=== PATIENT | male | born 1965 | race Caucasian/White ===

== ENCOUNTER 2021-04-07 20:46 | Emergency (ER) | payer OTHER ==
[2021-04-07 21:08] VITALS: BP 136/101
[2021-04-07] MEDS ORDERED: LIDOCAINE 1% 2 ML VIAL SUBQ STA (21:13)
--- NOTE | 2021-04-07 21:46 | ED Physician Documentation ---
History of Present Illness - Stated complaint Stated Complaint: RT LEG LAC - Chief complaint Chief Complaint: Laceration - History obtained from History obtained from: Patient - Additonal information Additional information: Patient presents with a right leg laceration. He was jumping into his car and his right mid fregoso hit a metal change box in his car and he sustained approximately 2 similar laceration on the right lower leg. Bleeding controlled prior to arrival. No other injuries. He states he had a tetanus shot 2 years ago. Review of Systems Constitutional: reports: Reviewed and negative Eyes: reports: Reviewed and negative Ears: reports: Reviewed and negative Nose: reports: Reviewed and negative Throat: reports: Reviewed and negative Cardiac: reports: Reviewed and negative Respiratory: reports: Reviewed and negative GI: reports: Reviewed and negative : reports: Reviewed and negative Skin: reports: Laceration (s) Musculoskeletal: reports: Reviewed and negative Neurologic: reports: Reviewed and negative Psychiatric: reports: Reviewed and negative Endocrine: reports: Reviewed and negative PD PAST MEDICAL HISTORY - Allergies Allergies/Adverse Reactions: Allergies Allergy/AdvReac Type Severity Reaction Status Date / Time No Known Drug Allergies Allergy Verified 04/07/21 21:08 PD ED PE NORMAL - Vitals Vital signs reviewed: Yes - General General: Alert and oriented X 3, No acute distress, Well developed/nourished - HEENT HEENT: Atraumatic, Moist mucous membranes - Cardiac Cardiac: RRR, No murmur - Respiratory Respiratory: No respiratory distress, Clear bilaterally - Derm Derm: Normal color, Warm and dry, Other (There is a Centimeter laceration on the right leg just lateral to the fregoso. Is currently not bleeding. It is about 1/2 cm wide.) - Extremities Extremities: No deformity, No tenderness to palpate, Normal ROM s pain, No edema, No calf tenderness / cord - Neuro Neuro: Alert and oriented X 3, No motor deficit, No sensory deficit, Normal speech Eye Opening: Spontaneous Motor: Obeys Commands Verbal: Oriented GCS Score: 15 - Psych Psych: Normal mood, Normal affect Results - Vitals Vitals: Vital Signs - 24 hr 04/07/21 21:06 Temperature 36.3 C L Heart Rate 73 Respiratory 18 Rate Blood Pressure 136/101 H O2 Saturation 100 Oxygen O2 Source Room air Procedures - Laceration (location) Lower extremity right Anterior Length in cm: 3 Wound type: Linear, Irregular, Into subcut fat Neurovascular status: Sensory intact, Motor intact, Vascular intact Anesthesia: Lidocaine 1% Wound preparation: Irrigated copiously NS Skin layer closure: Nylon, Size #-0 - enter number (4), Sutures - enter # (5) Other: Patient tolerated well, No complications, Neurovascular intact, Dressing applied, Tetanus UTD PD MEDICAL DECISION MAKING - ED course Complexity details: d/w patient ED course: 55-year-old male who presented with a right leg laceration. The laceration was cleaned with normal saline and closed as noted above. Patient tolerated well. Dressing cleared by nurse and patient was discharged. He was advised to have the sutures removed in 5 to 7 days, keep the site clean with soap and water but avoid soaking, no swimming and laceration is healed. I reviewed return precautions in detail with the patient including redness, swelling, purulent drainage, otherwise no concerns. Departure - Departure Disposition: 01 Home, Self Care Clinical Impression: Laceration Condition: Good Instructions: ED Laceration All Comments: He presented with a right leg laceration. I repaired it with 5 sutures. The sutures can come out in 5 to 7 days. Please keep area clean and dry do not soak until the wound has healed. If there are any signs of infection such as redness, swelling, purulent drainage, increased pain or other new concerns, return to the ER. Discharge Date/Time: 04/07/21 21:59
== END 2021-04-07 21:59 | disposition home or self-care (01) ==
LOC: ED 20:46
DX: S81.811A Laceration without foreign body, right lower leg, initial encounter (principal); W22.8XXA Striking against or struck by other objects, initial encounter
CPT/HCPCS: 12002; 99282; 99283